=== PATIENT | male | born 1940 | race Caucasian/White ===

== ENCOUNTER 2020-11-05 13:45 | Inpatient (IN) | payer MEDICARE, OTHER ==
--- NOTE | 2020-11-04 22:55 | NUR ---
REPORT RECIEVED FROM TERA GARCIA, FRAUD EXAMINER, AND PT T/F TO ROOM 362 AT 2252 VIA W/C. PT ORIENTED TO ROOM/CALL SYSTEM AND DENIES COMPLAINTS. SNACK PROVIDED PER REQUEST. WCTM AND PT AWARE TO CALL FOR ASSIST PRN.
[~2020-11-05] VITALS: Ht 180.3 cm; Wt 66.5 kg
[~2020-11-05 13:45] MED LIST: ASCO500 PO; ATEN25 PO; ATEN50 PO; Acidophilus La100 GM PO; Aspir 8181 MG PO; HYDCHL12.5 PO; Hair, Skin & N1 EACH PO; IRBESARTAN-HCT1 EAC3 PO; LEVO750 PO
[2020-11-05 14:43] LABS: BASOPHILS ABSOLUTE AUTO 0.05 K/mm3 (0.00-0.23); BASOPHILS PERCENT AUTO 0 % (0-2); EOSINOPHILS ABSOLUTE AUTO 0.08 K/mm3 (0.00-0.68); EOSINOPHILS PERCENT AUTO 1 % (0-6); Hematocrit 32.8 % (37.0-53.0); Hemoglobin 10.6 g/dL (13.5-17.5); IMMATURE GRAN ABSOLUTE AUTO 0.09 K/mm3 (0.00-0.10); IMMATURE GRAN PERCENT AUTO 1 % (0-1); LYMPHOCYTES ABSOLUTE AUTO 2.08 K/mm3 (0.84-5.20); LYMPHOCYTES PERCENT AUTO 13 % (21-46); MONOCYTES ABSOLUTE AUTO 1.27 K/mm3 (0.16-1.47); MONOCYTES PERCENT AUTO 8 % (4-13); Mean Corpuscular HGB 25.4 pg (26.0-34.0); Mean Corpuscular HGB Conc 32.3 g/dL (31.5-36.5); Mean Corpuscular Volume 79 fL (80-100); Mean Platelet Volume 8.6 fL (9.1-12.4); NEUTROPHILS ABSOLUTE AUTO 12.63 K/mm3 (1.96-9.15); NEUTROPHILS PERCENT AUTO 78 % (41-73); Platelet Count 375 K/mm3 (150-400); RDW Coefficient Variation 13.6 % (11.7-14.2); RDW Standard Deviation 38.8 fL (35.1-46.3); Red Blood Cell Count 4.17 M/mm3 (4.30-5.90)
[2020-11-05 15:01] LABS: Alanine Aminotransfer (ALT/SGP 16 U/L (12-78); Albumin, Blood 2.8 g/dL (3.4-5.0); Albumin/Globulin Ratio 0.6 (0.8-1.8); Alk Phos 76 U/L (50-136); Anion Gap 5 mmol/L (6-16); Aspartate Aminotrans (AST/SGOT 7 U/L (12-37); Bilirubin, Total 0.5 mg/dL (0.1-1.0); Blood Urea Nitrogen 17 mg/dL (8-24); Bun/Creatinine Ratio 23.4 (12.0-20.0); CO2, Blood 29 mmol/L (21-32); Calcium, Blood 8.8 mg/dL (8.5-10.1); Chloride, Blood 96 mmol/L (98-108); Creatinine, Blood 0.73 mg/dL (0.60-1.20); Globulin, Blood 4.5 g/dL (2.2-4.0); Glomerular Filtration Rate >60 (60-); Glucose, Blood 123 mg/dL (70-99); Potassium, Blood 4.1 mmol/L (3.5-5.5); Sodium, Blood 130 mmol/L (136-145); Total Protein, Blood 7.3 g/dL (6.4-8.2)
[2020-11-05 20:03] LABS: Source, Urine Clean Catch
[2020-11-05 20:08] LABS: Bilirubin, Urine Neg (Neg); Blood, Urine 1+ (Neg); Glucose Qualitative, Urine Neg (Neg); Ketones, Urine Neg (Neg); Leukocyte Esterase, Urine 1+ (Neg); Nitrite, Urine Neg (Neg); Protein, Urine 1+ (Neg); Specific Gravity, Urine 1.015 (1.003-1.022); Urobilinogen, Urine 1+ (Normal)
[2020-11-05 20:18] LABS: Appearance, Urine Clear (Clear); Color, Urine Yellow (P-Yellow)
[2020-11-05 20:20] LABS: Bacteria Mod /hpf; Red Blood Cells, Urine 0-2 /hpf (0-2); Squamous Epithelial Cells Few /hpf (Few); White Blood Cells, Urine 0-2 /hpf (0-5)
--- NOTE | 2020-11-05 22:30 | NUR ---
ATTEMPTED TO GET ER REPORT. AWAITING CALL BACK FROM RN AT THIS TIME.
--- NOTE | 2020-11-06 01:11 | NUR ---
CONSULT CALLED TO 'S ANSWERING SERVICE AT 0110.
--- NOTE | 2020-11-06 03:38 | NUR ---
SUMMARY: PT A/OX4, INDEPENDENT IN ROOM AND SPECIFIES NEEDS. NS COMMENCED AT 75ML/HR AND IV ABX RECIEVED FOR PERINEPHERIC ABCSESS. INTERVENTIONAL RADIOLOGY CX CALLED TO ANSWERING SERVICE. HE ADMITS TO FLANK TENDERNESS THAT RADIATES TO HIS BACK UPON PALPATION OF LOWER ABDO BUT DENIED NEEDING ANY PRN PAIN MEDS THIS SHIFT. PT USED URINAL TO VOID W/O ANY S/S OBTRUCTION, RETENTION OR DYSURIA. NO ACUTE CHANGES, VSS/AFEBRILE. WCTM/REPORT TO DAY RN.
[2020-11-06 05:00] LABS: BASOPHILS ABSOLUTE AUTO 0.05 K/mm3 (0.00-0.23); BASOPHILS PERCENT AUTO 0 % (0-2); EOSINOPHILS ABSOLUTE AUTO 0.12 K/mm3 (0.00-0.68); EOSINOPHILS PERCENT AUTO 1 % (0-6); Hemoglobin 9.7 g/dL (13.5-17.5); IMMATURE GRAN ABSOLUTE AUTO 0.07 K/mm3 (0.00-0.10); IMMATURE GRAN PERCENT AUTO 1 % (0-1); LYMPHOCYTES PERCENT AUTO 14 % (21-46); MONOCYTES ABSOLUTE AUTO 1.23 K/mm3 (0.16-1.47); MONOCYTES PERCENT AUTO 9 % (4-13); Mean Corpuscular HGB 24.9 pg (26.0-34.0); Mean Corpuscular HGB Conc 31.3 g/dL (31.5-36.5); Mean Corpuscular Volume 80 fL (80-100); Mean Platelet Volume 9.2 fL (9.1-12.4); NEUTROPHILS ABSOLUTE AUTO 10.37 K/mm3 (1.96-9.15); NEUTROPHILS PERCENT AUTO 75 % (41-73); Platelet Count 352 K/mm3 (150-400); RDW Coefficient Variation 13.7 % (11.7-14.2); RDW Standard Deviation 39.3 fL (35.1-46.3); White Blood Cell Count 13.74 K/mm3 (4.00-11.30)
[2020-11-06 05:31] LABS: Alanine Aminotransfer (ALT/SGP 12 U/L (12-78); Albumin, Blood 2.4 g/dL (3.4-5.0); Albumin/Globulin Ratio 0.6 (0.8-1.8); Alk Phos 69 U/L (50-136); Anion Gap 7 mmol/L (6-16); Aspartate Aminotrans (AST/SGOT 9 U/L (12-37); Bilirubin, Total 0.4 mg/dL (0.1-1.0); Blood Urea Nitrogen 15 mg/dL (8-24); CO2, Blood 26 mmol/L (21-32); Calcium, Blood 8.5 mg/dL (8.5-10.1); Chloride, Blood 102 mmol/L (98-108); Creatinine, Blood 0.68 mg/dL (0.60-1.20); Globulin, Blood 3.8 g/dL (2.2-4.0); Glomerular Filtration Rate >60 (60-); Glucose, Blood 113 mg/dL (70-99); Potassium, Blood 4.3 mmol/L (3.5-5.5); Sodium, Blood 135 mmol/L (136-145); Total Protein, Blood 6.2 g/dL (6.4-8.2)
--- NOTE | 2020-11-06 15:28 | NUR ---
ALERT AND ORIENTED. VITALS STABLE. CONTINUES ON IV ABX WITHOUT S/SX OF ADVERSE REACTIONS. WE DO NOT HAVE A PHYSICIAN/EQUIPTMENT AVAILABLE HERE AT [facility] FOR THE PROCEDURE THAT NEEDS TO BE PERFORMED ON PATIENT; COBRA TRANSFER ARRANGEMENTS HAVE BEEN STARTED FOR PATIENT TO BE TRANSFERED TO [facility]. PATIENT IS AWARE OF THIS. PATIENT IS NPO AT THIS TIME. DENIES PAIN AND DISCOMFORT. MASS TO RLQ VERY MINIMAL TO PALPATION TODAY. INDEPENDENT IN ROOM. CALL LIGHT IN REACH; SON IS AT BEDSIDE.
--- NOTE | 2020-11-06 16:57 | NUR ---
DR SLATER CAME UP TO THE FLOOR AT APPROX 1630 AND TALKED TO THE PATIENT. APPARENTLY THERE HAS BEEN A CHANGE IN PLANS AND DR Olguin WILL BE ABLE TO PERFORM THE PROCEDURE THE PATIENT IS NEEDING AND WILL DO SO TOMORROW. DR SLATER STATED THAT THE PATIENT COULD EAT DINNER AND GO NPO AT MIDNIGHT TOMORROW. DINNER TRAY HAS BEEN ORDERED. NS @ 125/HR ALSO ORDERED AND RUNNER PER EMAR.
--- NOTE | 2020-11-07 05:56 | NUR ---
[facility] SUMMARY NO ACUTE CHANGES THIS SHIFT. PT AAOX4 AND INDEPENDENT IN ROOM. DENIES PAIN T/O THE SHIFT AND HAS SLEPT FAIRLY WELL THROUGH THE NIGHT. PT HAS BEEN NPO SINCE MIDNIGHT IN PREP FOR DRAINAGE OF HIS PERINEPHRIC ABCESS LATER TODAY. VSS, WILL CONTINUE TO MONITOR.
[2020-11-07 15:48] LABS: International Normalized Ratio 1.15; Prothrombin Time Results 12.2 Sec (9.7-11.5)
--- NOTE | 2020-11-07 16:18 | NUR ---
PATIENT HAS BEEN PLEASANT AND COOPERATIVE WITH STAFF. INDEPENDANT. DENIES PAIN. CONTINUES ON IV ABX WITHOUT S/SX OF ADVERSE REACTIONS NOTED OR REPORTED. PATIENT WAITING IN ROOM AT THIS TIME FOR SURGICAL PROCEDURE WHICH IS SCHEDULED TO TAKE PLACE AT 1700; WILL PRE-MEDICATE WITH XANAX PER DR Olguin ORDERED. cALL LIGHT IN REACH.
--- NOTE | 2020-11-07 17:17 | NUR ---
PATIENT WAS JUST PICKED UP BY TRANSPORT AND IS BEING TAKEN DOWN TO THE OR.
--- NOTE | 2020-11-07 18:21 | NUR ---
PATIENT RETURNED TO ROOM 362 AT 181 AND IS VERY GROGGY FROM PO XANAX HE WAS MEDICATED WITH; TRANSFERED TO HOSPITAL BED WITH STAFF ASSIST X2. PATIENT WENT RIGHT TO SLEEP. IV ABX CONNECTED PER EMAR AND BED ALARM SET DUE TO COGNATIVE STATE OF PATIENT AT THIS TIME.
--- NOTE | 2020-11-08 04:53 | NUR ---
Taco was very somnolent since beginning of shift. Mid back pigtail exit site is clean, dry and intact and draining cloudy reddish/brown fluid. Taco is still very groggy from the medications (1mg po Xanax X2) he was given prior to the procedure. Patient is slowly getting back to his normal state of alertness, however he still will require an alarm for a while to make sure he does not pull on lines. (he is not too steady on his feet)
[2020-11-08] MEDS ORDERED: VISBIOME 112.51 EACH PO (13:26)
[2020-11-08] MEDS ORDERED: AMOX500 PO (13:27)
[2020-11-12] MEDS ORDERED: LEVFLO500 PO (14:00)
== END 2020-11-08 14:02 | disposition home or self-care (01) | DRG 690 ==
LOC: ER 13:45 → MEDS 21:40
PROVIDERS: Emergency Medicine; Radiology Diagnostic Radiology; ADMIT Internal Medicine
PROC: 0T9030Z Drainage of Right Kidney with Drainage Device, Percutaneous Approach (ICD-10-PCS; principal; 2020-11-07)
DX: N15.1 Renal and perinephric abscess (principal); E87.1 Hypo-osmolality and hyponatremia; Z90.49 Acquired absence of other specified parts of digestive tract; Z79.899 Other long term (current) drug therapy; I10 Essential (primary) hypertension; Z79.82 Long term (current) use of aspirin; Z87.891 Personal history of nicotine dependence; D63.8 Anemia in other chronic diseases classified elsewhere; Z98.890 Other specified postprocedural states
CPT/HCPCS: 36415; 74177; 75989; 80053; 81001; 83605; 83690; 85025; 85610; 87040; 87070; 87075; 87077; 87086; 87186; 87205; 88108; 93005; 93010; 96365-59; 96375; 99284-25; A9270; J2543; J3010; J3370; J7030; J7050; Q9967

== ENCOUNTER 2020-11-13 06:56 | Day surgery (SDC) | payer MEDICARE, OTHER ==
[~2020-11-13] VITALS: Ht 180.3 cm; Wt 67.7 kg
[~2020-11-13 06:56] MED LIST changes: +AMOX500 PO; +LEVFLO500 PO; +VISBIOME 112.51 EACH PO
== END 2020-11-13 11:30 | disposition home or self-care (01) ==
LOC: MHTC 06:56
DX: N15.1 Renal and perinephric abscess (principal); Z01.818 Encounter for other preprocedural examination; F17.200 Nicotine dependence, unspecified, uncomplicated
CPT/HCPCS: 49405; 76937; C1729; C1769; C1887; J7030; Q9967

== ENCOUNTER 2020-12-22 07:32 | Emergency (ER) | payer MEDICARE, OTHER ==
[~2020-12-22] VITALS: Ht 180.3 cm; Wt 67.1 kg
[2020-12-22 09:07] LABS: BASOPHILS ABSOLUTE AUTO 0.04 K/mm3 (0.00-0.23); BASOPHILS PERCENT AUTO 0 % (0-2); EOSINOPHILS ABSOLUTE AUTO 0.03 K/mm3 (0.00-0.68); EOSINOPHILS PERCENT AUTO 0 % (0-6); Hematocrit 34.5 % (37.0-53.0); IMMATURE GRAN ABSOLUTE AUTO 0.09 K/mm3 (0.00-0.10); IMMATURE GRAN PERCENT AUTO 1 % (0-1); LYMPHOCYTES ABSOLUTE AUTO 1.34 K/mm3 (0.84-5.20); LYMPHOCYTES PERCENT AUTO 7 % (21-46); MONOCYTES ABSOLUTE AUTO 1.45 K/mm3 (0.16-1.47); MONOCYTES PERCENT AUTO 8 % (4-13); Mean Corpuscular HGB 25.7 pg (26.0-34.0); Mean Corpuscular HGB Conc 31.9 g/dL (31.5-36.5); Mean Corpuscular Volume 81 fL (80-100); Mean Platelet Volume 9.1 fL (9.1-12.4); NEUTROPHILS ABSOLUTE AUTO 15.45 K/mm3 (1.96-9.15); NEUTROPHILS PERCENT AUTO 84 % (41-73); Platelet Count 308 K/mm3 (150-400); RDW Coefficient Variation 14.8 % (11.7-14.2); RDW Standard Deviation 44.1 fL (35.1-46.3); Red Blood Cell Count 4.28 M/mm3 (4.30-5.90)
[2020-12-22 09:26] LABS: Anion Gap 4 mmol/L (6-16); Blood Urea Nitrogen 18 mg/dL (8-24); CO2, Blood 30 mmol/L (21-32); Calcium, Blood 9.2 mg/dL (8.5-10.1); Chloride, Blood 97 mmol/L (98-108); Creatinine, Blood 0.69 mg/dL (0.60-1.20); Glomerular Filtration Rate >60 (60-); Glucose, Blood 121 mg/dL (70-99); Potassium, Blood 4.3 mmol/L (3.5-5.5); Sodium, Blood 131 mmol/L (136-145)
== END 2020-12-22 09:53 | disposition home or self-care (01) ==
LOC: ER 07:32
PROVIDERS: Emergency Medicine
DX: L02.211 Cutaneous abscess of abdominal wall (principal)
CPT/HCPCS: 36415; 80048; 85025; 86140; 99283

== ENCOUNTER 2020-12-23 06:56 | Observation (INO) | payer MEDICARE, OTHER ==
[~2020-12-23] VITALS: Ht 180.3 cm; Wt 67.1 kg
[2020-12-23 08:51] LABS: SARS-Cov-2 (COVID-19) PCR, MMC NEGATIVE (NEGATIVE)
--- NOTE | 2020-12-23 11:56 | NUR ---
PT TO OR.
--- NOTE | 2020-12-23 14:13 | NUR ---
PT ARRIVED TO UNIT FROM PACU A&OX4. VSS. DENIES PAIN AND N/V. DRINKING COFFEE. CALL LIGHT IN REACH.
--- NOTE | 2020-12-23 14:35 | NUR ---
DR ZIMMERMAN IN TO SEE PT CHANGED DRESSING TO R FLANK. PT TOLERATED WELL. PLAN TO DC IN AM. VSS. CALL LIGHT IN REACH.
--- NOTE | 2020-12-23 18:48 | NUR ---
SHIFT SUMMARY NO ACUTE CHANGES SINCE ARRIVING BACK FROM PACU. PT DENIES PAIN. TOLERATED DIET. IV ABX INFUSING PER ORDERS. DENIES ANY NEEDS AT THIS TIME.
[2020-12-24 04:22] LABS: BASOPHILS ABSOLUTE AUTO 0.01 K/mm3 (0.00-0.23); BASOPHILS PERCENT AUTO 0 % (0-2); EOSINOPHILS PERCENT AUTO 0 % (0-6); Hematocrit 34.4 % (37.0-53.0); Hemoglobin 11.2 g/dL (13.5-17.5); IMMATURE GRAN ABSOLUTE AUTO 0.07 K/mm3 (0.00-0.10); IMMATURE GRAN PERCENT AUTO 1 % (0-1); LYMPHOCYTES ABSOLUTE AUTO 1.68 K/mm3 (0.84-5.20); LYMPHOCYTES PERCENT AUTO 11 % (21-46); MONOCYTES ABSOLUTE AUTO 0.79 K/mm3 (0.16-1.47); MONOCYTES PERCENT AUTO 5 % (4-13); Mean Corpuscular HGB Conc 32.6 g/dL (31.5-36.5); Mean Corpuscular Volume 80 fL (80-100); Mean Platelet Volume 9.1 fL (9.1-12.4); NEUTROPHILS ABSOLUTE AUTO 12.88 K/mm3 (1.96-9.15); NEUTROPHILS PERCENT AUTO 83 % (41-73); Platelet Count 344 K/mm3 (150-400); RDW Coefficient Variation 14.7 % (11.7-14.2); White Blood Cell Count 15.43 K/mm3 (4.00-11.30)
--- NOTE | 2020-12-24 06:13 | NUR ---
POD 1 S/P I&D OF RIGHT FLANK ABCESS. PT VSS T/O NIGHT, HR TRENDING BRANDO, PT ASYMPTOMATIC. PT DENIED PAIN, REPORTS THIS IS THE BEST HE HAS FELT IN NEARLY 2 MONTHS. NO CHANGES IN SHADOWING ON DRESSING. PT LESIA REG PO, IS VOIDING W/O DIFFICULTY, AMB INDEP IN ROOM. PLAN TO COMPLETE ABX AND D/C HOME TODAY.
--- NOTE | 2020-12-24 10:05 | NUR ---
DISCHARGE PT DISCHARGED HOME FROM UNIT AT APROX 0945. PT GIVEN WRITTEN AND VERBAL DC INSTRUCTIONS AND VERBALIZED UNDERSTANDING. WRITTEN RX FOR PAIN MED AND ABX GIVEN TO PT. IV REMOVED, TOLERATED WELL. DECLINED WC TO CAR, AMBULATED INDEPENDENTLY.
== END 2020-12-24 09:45 | disposition home or self-care (01) ==
LOC: ER 06:56 → ERHOLD 06:57 → SURS 06:57
PROVIDERS: Emergency Medicine; ADMIT Surgery
PROC: 0D9W0ZZ Drainage of Peritoneum, Open Approach (ICD-10-PCS; principal; 2020-12-23 11:30)
DX: K65.1 Peritoneal abscess (principal); I10 Essential (primary) hypertension; F17.200 Nicotine dependence, unspecified, uncomplicated; Z20.822 Contact with and (suspected) exposure to COVID-19
CPT/HCPCS: 36415; 85025; 87070; 87075; 87077; 87186; 87205; 96365; 96376; 99284; A9270; G0378; J1100; J2405; J2543; J2704; J3010; J7050; J7120; U0004

== ENCOUNTER 2020-12-29 08:26 | Day surgery (SDC) | payer MEDICARE, OTHER ==
[2020-12-29] MEDS ORDERED: CEFD300 PO (09:44)
[2020-12-29] MEDS ORDERED: HYDROCODONE-AC1 EA12 PO (09:44)
--- NOTE | 2020-12-29 09:47 | NUR ---
OLD DRESSING AND PACKING REMOVED. AREA CLEANSED WITH SKIN INTEGRITY CLEANSER. WOUND REPACKED WITH 1/2 INCH DRY PLAIN PACKING STRIP ABOUT 3 INCHES IN LENGTH COVERED WITH 2 STERILE GAUZE PADS, ABD, AND MEFIX TAPE.
== END 2020-12-29 09:10 | disposition home or self-care (01) ==
LOC: ATC 08:26
DX: K65.1 Peritoneal abscess (principal); Z79.899 Other long term (current) drug therapy
CPT/HCPCS: 99212

== ENCOUNTER 2020-12-30 00:09 | Day surgery (SDC) | payer MEDICARE, OTHER ==
[~2020-12-30 00:09] MED LIST changes: +CEFD300 PO; +HYDROCODONE-AC1 EA12 PO
== END 2020-12-30 08:52 | disposition home or self-care (01) ==
LOC: ATC 00:09
DX: K65.1 Peritoneal abscess (principal); Z79.899 Other long term (current) drug therapy
CPT/HCPCS: 99212

== ENCOUNTER 2021-02-16 05:04 | Emergency (ER) | payer MEDICARE, OTHER ==
[~2021-02-16] VITALS: Ht 180.3 cm; Wt 65.3 kg
== END 2021-02-16 06:24 | disposition home or self-care (01) ==
LOC: ER 05:04
DX: Z48.01 Encounter for change or removal of surgical wound dressing (principal); I10 Essential (primary) hypertension
CPT/HCPCS: 99282-25

== ENCOUNTER → 2021-02-18 | Outpatient (CLI) | payer MEDICARE, OTHER | END | disposition home or self-care (01) | LOC: LAB SHORT 13:20 → LAB 13:20 | DX: I10 Essential (primary) hypertension (principal) | CPT/HCPCS: 82043 ==

== ENCOUNTER → 2021-05-31 | Outpatient (CLI) | payer MEDICARE, OTHER | END | disposition home or self-care (01) | LOC: LAB 11:58 → LAB SHORT 11:58 | DX: L02.91 Cutaneous abscess, unspecified (principal) | CPT/HCPCS: 87070; 87075; 87077; 87186; 87205 ==

== ENCOUNTER 2021-06-10 06:12 | Day surgery (SDC) | payer MEDICARE, OTHER | END 2021-06-10 23:24 | disposition home or self-care (01) | LOC: WOUND 06:12 | DX: L02.91 Cutaneous abscess, unspecified (principal) | CPT/HCPCS: A9270; G0463 ==

== ENCOUNTER 2021-06-17 05:28 | Day surgery (SDC) | payer MEDICARE, OTHER | END 2021-06-17 23:00 | disposition home or self-care (01) | LOC: WOUND 05:28 | DX: L02.91 Cutaneous abscess, unspecified (principal); S31.103D Unspecified open wound of abdominal wall, right lower quadrant without penetration into peritoneal cavity, subsequent encounter; X58.XXXD Exposure to other specified factors, subsequent encounter | CPT/HCPCS: G0463 ==

== ENCOUNTER 2021-07-08 03:01 | Day surgery (SDC) | payer MEDICARE, OTHER | END 2021-07-08 23:02 | disposition home or self-care (01) | LOC: WOUND 03:01 | DX: L02.211 Cutaneous abscess of abdominal wall (principal); S31.103D Unspecified open wound of abdominal wall, right lower quadrant without penetration into peritoneal cavity, subsequent encounter; X58.XXXD Exposure to other specified factors, subsequent encounter | CPT/HCPCS: A9270 ==

== ENCOUNTER 2021-07-15 03:46 | Day surgery (SDC) | payer MEDICARE, OTHER | END 2021-07-15 12:00 | disposition home or self-care (01) | LOC: WOUND 03:46 | DX: L02.91 Cutaneous abscess, unspecified (principal); S31.103D Unspecified open wound of abdominal wall, right lower quadrant without penetration into peritoneal cavity, subsequent encounter; X58.XXXD Exposure to other specified factors, subsequent encounter | CPT/HCPCS: A9270 ==

== ENCOUNTER 2021-07-22 02:43 | Day surgery (SDC) | payer MEDICARE, OTHER | END 2021-07-22 22:54 | disposition home or self-care (01) | LOC: WOUND 02:43 | DX: L02.91 Cutaneous abscess, unspecified (principal); S31.103D Unspecified open wound of abdominal wall, right lower quadrant without penetration into peritoneal cavity, subsequent encounter; X58.XXXD Exposure to other specified factors, subsequent encounter | CPT/HCPCS: A9270 ==

== ENCOUNTER 2021-07-29 03:24 | Day surgery (SDC) | payer MEDICARE, OTHER | END 2021-07-29 22:46 | disposition home or self-care (01) | LOC: WOUND 03:24 | DX: L02.91 Cutaneous abscess, unspecified (principal); S31.103D Unspecified open wound of abdominal wall, right lower quadrant without penetration into peritoneal cavity, subsequent encounter; X58.XXXD Exposure to other specified factors, subsequent encounter | CPT/HCPCS: A9270 ==

== ENCOUNTER 2021-08-07 03:31 | Day surgery (SDC) | payer MEDICARE, OTHER | END 2021-08-08 12:00 | disposition home or self-care (01) | LOC: WOUND 03:31 | DX: L02.91 Cutaneous abscess, unspecified (principal); S31.103D Unspecified open wound of abdominal wall, right lower quadrant without penetration into peritoneal cavity, subsequent encounter; X58.XXXD Exposure to other specified factors, subsequent encounter | CPT/HCPCS: G0463 ==

== ENCOUNTER 2021-08-12 00:48 | Day surgery (SDC) | payer MEDICARE, OTHER | END 2021-08-12 23:22 | disposition home or self-care (01) | LOC: WOUND 00:48 | DX: L02.91 Cutaneous abscess, unspecified (principal); S31.103D Unspecified open wound of abdominal wall, right lower quadrant without penetration into peritoneal cavity, subsequent encounter; X58.XXXD Exposure to other specified factors, subsequent encounter | CPT/HCPCS: A9270 ==

== ENCOUNTER 2021-08-26 02:52 | Day surgery (SDC) | payer MEDICARE, OTHER | END 2021-08-26 22:45 | disposition home or self-care (01) | LOC: WOUND 02:52 | DX: L02.91 Cutaneous abscess, unspecified (principal); S31.103D Unspecified open wound of abdominal wall, right lower quadrant without penetration into peritoneal cavity, subsequent encounter | CPT/HCPCS: A9270; G0463 ==

== ENCOUNTER 2021-09-02 03:16 | Day surgery (SDC) | payer MEDICARE, OTHER | END 2021-09-02 23:32 | disposition home or self-care (01) | LOC: WOUND 03:16 | DX: L02.91 Cutaneous abscess, unspecified (principal); S31.103D Unspecified open wound of abdominal wall, right lower quadrant without penetration into peritoneal cavity, subsequent encounter; I10 Essential (primary) hypertension; Z90.49 Acquired absence of other specified parts of digestive tract | CPT/HCPCS: G0463 ==

== ENCOUNTER 2021-09-16 02:59 | Day surgery (SDC) | payer MEDICARE, OTHER | END 2021-09-16 23:29 | disposition home or self-care (01) | LOC: WOUND 02:59 | DX: L02.211 Cutaneous abscess of abdominal wall (principal); S31.103D Unspecified open wound of abdominal wall, right lower quadrant without penetration into peritoneal cavity, subsequent encounter; I10 Essential (primary) hypertension | CPT/HCPCS: A9270 ==

== ENCOUNTER 2021-09-30 01:24 | Day surgery (SDC) | payer MEDICARE, OTHER | END 2021-09-30 23:41 | disposition home or self-care (01) | LOC: WOUND 01:24 | DX: L02.211 Cutaneous abscess of abdominal wall (principal); S31.109A Unspecified open wound of abdominal wall, unspecified quadrant without penetration into peritoneal cavity, initial encounter; I10 Essential (primary) hypertension; X58.XXXA Exposure to other specified factors, initial encounter | CPT/HCPCS: A9270 ==

== ENCOUNTER 2021-10-02 00:24 | Day surgery (SDC) | payer MEDICARE, OTHER | END 2021-10-02 22:53 | disposition home or self-care (01) | LOC: WOUND 00:24 | DX: L02.91 Cutaneous abscess, unspecified (principal); S31.103D Unspecified open wound of abdominal wall, right lower quadrant without penetration into peritoneal cavity, subsequent encounter | CPT/HCPCS: G0463 ==

== ENCOUNTER 2021-10-04 00:51 | Day surgery (SDC) | payer MEDICARE, OTHER | END 2021-10-04 12:00 | disposition home or self-care (01) | LOC: WOUND 00:51 | DX: S31.103D Unspecified open wound of abdominal wall, right lower quadrant without penetration into peritoneal cavity, subsequent encounter (principal); L02.91 Cutaneous abscess, unspecified | CPT/HCPCS: G0463 ==

== ENCOUNTER 2021-10-07 02:53 | Day surgery (SDC) | payer MEDICARE, OTHER | END 2021-10-07 23:42 | disposition home or self-care (01) | LOC: WOUND 02:53 | DX: S31.103A Unspecified open wound of abdominal wall, right lower quadrant without penetration into peritoneal cavity, initial encounter (principal); L02.91 Cutaneous abscess, unspecified; I10 Essential (primary) hypertension; Z90.49 Acquired absence of other specified parts of digestive tract | CPT/HCPCS: A9270 ==

== ENCOUNTER 2021-10-09 01:16 | Day surgery (SDC) | payer MEDICARE, OTHER | END 2021-10-09 23:28 | disposition home or self-care (01) | LOC: WOUND 01:16 | DX: L02.91 Cutaneous abscess, unspecified (principal); S31.103D Unspecified open wound of abdominal wall, right lower quadrant without penetration into peritoneal cavity, subsequent encounter | CPT/HCPCS: G0463 ==

== ENCOUNTER 2021-10-14 05:46 | Day surgery (SDC) | payer MEDICARE, OTHER | END 2021-10-14 23:31 | disposition home or self-care (01) | LOC: WOUND 05:46 | DX: S31.103D Unspecified open wound of abdominal wall, right lower quadrant without penetration into peritoneal cavity, subsequent encounter (principal); L02.211 Cutaneous abscess of abdominal wall; I10 Essential (primary) hypertension; Z90.49 Acquired absence of other specified parts of digestive tract | CPT/HCPCS: A9270; G0463 ==

== ENCOUNTER 2021-10-21 02:14 | Day surgery (SDC) | payer MEDICARE, OTHER | END 2021-10-21 22:47 | disposition home or self-care (01) | LOC: WOUND 02:14 | DX: L02.91 Cutaneous abscess, unspecified (principal); S31.103D Unspecified open wound of abdominal wall, right lower quadrant without penetration into peritoneal cavity, subsequent encounter; I10 Essential (primary) hypertension | CPT/HCPCS: A9270; G0463 ==

== ENCOUNTER 2021-10-28 01:09 | Day surgery (SDC) | payer MEDICARE, OTHER | END 2021-10-28 23:42 | disposition home or self-care (01) | LOC: WOUND 01:09 | DX: S31.103D Unspecified open wound of abdominal wall, right lower quadrant without penetration into peritoneal cavity, subsequent encounter (principal); N15.1 Renal and perinephric abscess; I10 Essential (primary) hypertension | CPT/HCPCS: A9270 ==

== ENCOUNTER 2021-11-11 00:52 | Day surgery (SDC) | payer MEDICARE, OTHER | END 2021-11-11 23:59 | disposition home or self-care (01) | LOC: WOUND 00:52 | DX: S31.103A Unspecified open wound of abdominal wall, right lower quadrant without penetration into peritoneal cavity, initial encounter (principal); L02.91 Cutaneous abscess, unspecified | CPT/HCPCS: A9270 ==

== ENCOUNTER 2021-11-18 02:48 | Day surgery (SDC) | payer MEDICARE, OTHER | END 2021-11-18 23:06 | disposition home or self-care (01) | LOC: WOUND 02:48 | DX: L02.91 Cutaneous abscess, unspecified (principal); S31.103D Unspecified open wound of abdominal wall, right lower quadrant without penetration into peritoneal cavity, subsequent encounter; I10 Essential (primary) hypertension; Z90.49 Acquired absence of other specified parts of digestive tract | CPT/HCPCS: A9270 ==

== ENCOUNTER 2021-11-25 01:40 | Day surgery (SDC) | payer MEDICARE, OTHER | END 2021-11-25 22:55 | disposition home or self-care (01) | LOC: WOUND 01:40 | DX: S31.109A Unspecified open wound of abdominal wall, unspecified quadrant without penetration into peritoneal cavity, initial encounter (principal); L02.91 Cutaneous abscess, unspecified | CPT/HCPCS: A9270 ==

== ENCOUNTER 2021-12-02 01:05 | Day surgery (SDC) | payer MEDICARE, OTHER | END 2021-12-02 23:10 | disposition home or self-care (01) | LOC: WOUND 01:05 | DX: T81.41XA Infection following a procedure, superficial incisional surgical site, initial encounter (principal); L02.211 Cutaneous abscess of abdominal wall; I10 Essential (primary) hypertension; Y83.9 Surgical procedure, unspecified as the cause of abnormal reaction of the patient, or of later complication, without mention of misadventure at the time of the procedure | CPT/HCPCS: A9270; G0463 ==

== ENCOUNTER 2021-12-09 01:18 | Day surgery (SDC) | payer MEDICARE, OTHER | END 2021-12-09 23:07 | disposition home or self-care (01) | LOC: WOUND 01:18 | DX: L02.211 Cutaneous abscess of abdominal wall (principal); T81.41XA Infection following a procedure, superficial incisional surgical site, initial encounter; I10 Essential (primary) hypertension; Y83.8 Other surgical procedures as the cause of abnormal reaction of the patient, or of later complication, without mention of misadventure at the time of the procedure | CPT/HCPCS: A9270; G0463 ==

== ENCOUNTER 2021-12-23 01:08 | Day surgery (SDC) | payer MEDICARE, OTHER | END 2021-12-23 23:18 | disposition home or self-care (01) | LOC: WOUND 01:08 | DX: L02.91 Cutaneous abscess, unspecified (principal); S31.103D Unspecified open wound of abdominal wall, right lower quadrant without penetration into peritoneal cavity, subsequent encounter; X58.XXXD Exposure to other specified factors, subsequent encounter | CPT/HCPCS: A9270; G0463 ==

== ENCOUNTER 2022-01-13 01:05 | Day surgery (SDC) | payer MEDICARE, OTHER | END 2022-01-13 23:32 | disposition home or self-care (01) | LOC: WOUND 01:05 | DX: L02.91 Cutaneous abscess, unspecified (principal); S31.103D Unspecified open wound of abdominal wall, right lower quadrant without penetration into peritoneal cavity, subsequent encounter; X58.XXXD Exposure to other specified factors, subsequent encounter | CPT/HCPCS: A9270 ==

== ENCOUNTER 2022-01-20 00:28 | Day surgery (SDC) | payer MEDICARE, OTHER | END 2022-01-20 23:54 | disposition home or self-care (01) | LOC: WOUND 00:28 | DX: L02.91 Cutaneous abscess, unspecified (principal); S31.103D Unspecified open wound of abdominal wall, right lower quadrant without penetration into peritoneal cavity, subsequent encounter; X58.XXXD Exposure to other specified factors, subsequent encounter; I10 Essential (primary) hypertension | CPT/HCPCS: A9270; G0463 ==

== ENCOUNTER 2022-01-27 08:00 | Day surgery (SDC) | payer MEDICARE, OTHER | END 2022-01-27 23:59 | disposition home or self-care (01) | LOC: WOUND 08:00 | DX: L02.91 Cutaneous abscess, unspecified (principal); S31.103D Unspecified open wound of abdominal wall, right lower quadrant without penetration into peritoneal cavity, subsequent encounter; X58.XXXD Exposure to other specified factors, subsequent encounter | CPT/HCPCS: G0463 ==

== ENCOUNTER → 2024-04-12 | Outpatient (CLI) | payer MEDICARE, OTHER ==
[2024-04-12 10:09] LABS: PSA, %Free 22.5 %; PSA, Free 0.793 ng/mL
[2024-04-12 10:10] LABS: Alanine Aminotransfer (ALT/SGP 28 U/L (12-78); Albumin/Globulin Ratio 1.2 (0.8-1.8); Alk Phos 85 U/L (50-136); Anion Gap 8 mmol/L (3-11); Aspartate Aminotrans (AST/SGOT 26 U/L (12-37); Bilirubin, Total 0.6 mg/dL (0.1-1.0); Blood Urea Nitrogen 16 mg/dL (8-24); Bun/Creatinine Ratio 26.4 (12.0-20.0); CHOL/HDL RATIO 2.3; CO2, Blood 29 mmol/L (21-32); Calcium, Blood 9.1 mg/dL (8.5-10.1); Chloride, Blood 96 mmol/L (98-108); Cholesterol 104 mg/dL (50-200); Creatinine, Blood 0.61 mg/dL (0.60-1.20); Globulin, Blood 3.4 g/dL (2.2-4.0); Glomerular Filtration Rate 95 (60-); Glucose, Blood 116 mg/dL (70-99); HDL Cholesterol 45 mg/dL (>39); Low Density Lipoprotein Chol 44 mg/dL (0-110); Potassium, Blood 4.2 mmol/L (3.5-5.5); Sodium, Blood 129 mmol/L (136-145); Total Protein, Blood 7.4 g/dL (6.4-8.2); Triglycerides 73 mg/dL (30-160); Very Low Density Lipoprot Chol 14 mg/dL (6-32)
== END | disposition home or self-care (01) ==
LOC: LAB 08:15 → LAB SHORT 08:15
PROVIDERS: Nurse Practitioner Family
DX: Z13.6 Encounter for screening for cardiovascular disorders (principal); I10 Essential (primary) hypertension; R39.12 Poor urinary stream
CPT/HCPCS: 80053; 80061; 84153; 84154

== ENCOUNTER → 2025-04-12 | Outpatient (CLI) | payer MEDICARE, OTHER ==
[2025-04-12 20:03] LABS: BASOPHILS ABSOLUTE AUTO 0.03 K/mm3 (0.00-0.23); BASOPHILS PERCENT AUTO 0 % (0-2); EOSINOPHILS ABSOLUTE AUTO 0.14 K/mm3 (0.00-0.68); EOSINOPHILS PERCENT AUTO 2 % (0-6); Hematocrit 37.5 % (37.0-53.0); Hemoglobin 12.9 g/dL (13.5-17.5); IMMATURE GRAN ABSOLUTE AUTO 0.05 K/mm3 (0.00-0.10); IMMATURE GRAN PERCENT AUTO 1 % (0-1); LYMPHOCYTES ABSOLUTE AUTO 2.34 K/mm3 (0.84-5.20); LYMPHOCYTES PERCENT AUTO 25 % (21-46); MONOCYTES ABSOLUTE AUTO 0.90 K/mm3 (0.16-1.47); MONOCYTES PERCENT AUTO 10 % (4-13); Mean Corpuscular HGB Conc 34.4 g/dL (31.5-36.5); Mean Corpuscular Volume 86 fL (80-100); NEUTROPHILS ABSOLUTE AUTO 6.00 K/mm3 (1.96-9.15); NEUTROPHILS PERCENT AUTO 64 % (41-73); NRBC ABSOLUTE 0.00 K/mm3 (0.00-0.02); NRBC Auto 0.0 /100 WBC (0.0-0.2); Platelet Count 238 K/mm3 (150-400); RDW Coefficient Variation 12.7 % (11.7-14.2); RDW Standard Deviation 39.6 fL (35.1-46.3)
[2025-04-12 20:54] LABS: Alanine Aminotransfer (ALT/SGP 26.0 U/L (12-78); Albumin, Blood 4.0 g/dL (3.4-5.0); Albumin/Globulin Ratio 1.2 (0.8-1.8); Anion Gap 9.0 mmol/L (3-11); Aspartate Aminotrans (AST/SGOT 16.0 U/L (12-37); Bilirubin, Total 0.4 mg/dL (0.1-1.0); Blood Urea Nitrogen 20.0 mg/dL (8-24); CO2, Blood 25.0 mmol/L (21-32); Calcium, Blood 9.4 mg/dL (8.5-10.1); Chloride, Blood 96.0 mmol/L (98-108); Creatinine, Blood 0.65 mg/dL (0.60-1.20); Globulin, Blood 3.4 g/dL (2.2-4.0); Glucose, Blood 130.0 mg/dL (70-99); Potassium, Blood 4.2 mmol/L (3.5-5.5); Sodium, Blood 126.0 mmol/L (136-145); Total Protein, Blood 7.4 g/dL (6.4-8.2)
== END | disposition home or self-care (01) ==
LOC: LAB 19:28 → LAB SHORT 19:28
PROVIDERS: Nurse Practitioner Family
DX: I10 Essential (primary) hypertension (principal)
CPT/HCPCS: 80053; 85025

== ENCOUNTER → 2025-07-11 | Outpatient (CLI) | payer MEDICARE, OTHER ==
[2025-07-11 16:33] LABS: BASOPHILS ABSOLUTE AUTO 0.05 K/mm3 (0.00-0.23); BASOPHILS PERCENT AUTO 1 % (0-2); EOSINOPHILS ABSOLUTE AUTO 0.10 K/mm3 (0.00-0.68); EOSINOPHILS PERCENT AUTO 1 % (0-6); Hematocrit 42.1 % (37.0-53.0); Hemoglobin 13.5 g/dL (13.5-17.5); IMMATURE GRAN ABSOLUTE AUTO 0.03 K/mm3 (0.00-0.10); IMMATURE GRAN PERCENT AUTO 0 % (0-1); LYMPHOCYTES ABSOLUTE AUTO 1.96 K/mm3 (0.84-5.20); LYMPHOCYTES PERCENT AUTO 20 % (21-46); MONOCYTES ABSOLUTE AUTO 0.75 K/mm3 (0.16-1.47); MONOCYTES PERCENT AUTO 8 % (4-13); Mean Corpuscular HGB Conc 32.1 g/dL (31.5-36.5); Mean Corpuscular Volume 90 fL (80-100); NEUTROPHILS ABSOLUTE AUTO 7.10 K/mm3 (1.96-9.15); NEUTROPHILS PERCENT AUTO 71 % (41-73); NRBC ABSOLUTE 0.00 K/mm3 (0.00-0.02); NRBC Auto 0.0 /100 WBC (0.0-0.2); Platelet Count 241 K/mm3 (150-400); RDW Coefficient Variation 13.1 % (11.7-14.2); RDW Standard Deviation 42.5 fL (35.1-46.3)
[2025-07-12 07:19] LABS: Alanine Aminotransfer (ALT/SGP 25 U/L (12-78); Albumin, Blood 4.1 g/dL (3.4-5.0); Albumin/Globulin Ratio 1.3 (0.8-1.8); Anion Gap 10 mmol/L (3-11); Aspartate Aminotrans (AST/SGOT 17 U/L (12-37); Bilirubin, Total 0.5 mg/dL (0.1-1.0); Blood Urea Nitrogen 16 mg/dL (8-24); CO2, Blood 26 mmol/L (21-32); Calcium, Blood 9.1 mg/dL (8.5-10.1); Chloride, Blood 101 mmol/L (98-108); Creatinine, Blood 0.58 mg/dL (0.60-1.20); Globulin, Blood 3.2 g/dL (2.2-4.0); Glucose, Blood 129 mg/dL (70-99); Potassium, Blood 4.5 mmol/L (3.5-5.5); Prostate Specific Antigen 4.230 ng/mL (0.000-4.000); Sodium, Blood 132 mmol/L (136-145); Total Protein, Blood 7.3 g/dL (6.4-8.2)
== END | disposition home or self-care (01) ==
LOC: LAB SHORT 15:20 → LAB 15:20
PROVIDERS: Nurse Practitioner Family
DX: Z12.5 Encounter for screening for malignant neoplasm of prostate (principal); I10 Essential (primary) hypertension
CPT/HCPCS: 80053; 85025; G0103